=== PATIENT | female | born 1995 | race Caucasian/White ===

== ENCOUNTER 2018-05-25 16:51 | Emergency (ER) | payer MEDICAID ==
[~2018-05-25] VITALS: Ht 167.6 cm; Wt 101.3 kg
[2018-05-25 18:10] VITALS: BP 138/74
[2018-05-25 20:24] LABS: APPEARANCE,URINE CLEAR (CLEAR); BILIRUBIN,URINE NEGATIVE (NEGATIVE); BLOOD, URINE 3+ (NEGATIVE); COLOR,URINE YELLOW (YELLOW); LEUKOCYTE ESTERASE ,URINE NEGATIVE (NEGATIVE); NITRITE, URINE NEGATIVE (NEGATIVE); UGLUCOSE NEGATIVE (NEGATIVE)
[2018-05-25 20:47] LABS: RBC,URINE 0-5 (RARE) /HPF (0-5); WBC,URINE 0-5 (RARE) /HPF (0-5)
[2018-05-25 20:48] LABS: URINE AMORPHOUS URATE 3+ /HPF (None Seen)
[2018-05-25] MEDS ORDERED: NACL 0.9% 2,000 ML IV ONE (21:00)
[2018-05-25] MEDS ORDERED: KETOROLAC 30 MG/ML VIAL IVP ONE (21:00)
[2018-05-25 21:24] LABS: BASOPHILS % (AUTO) 0.3 % (0.0-2.0); EOSINOPHILS # (AUTO) 0.4 K/uL (0-0.4); EOSINOPHILS % (AUTO) 3.3 % (0.0-4.0); HEMOGLOBIN 13.4 g/dL (12.0-16.0); LYMPHOCYTES # (AUTO) 3.5 K/uL (2.5-16.5); LYMPHOCYTES % (AUTO) 27.7 % (20.5-51.1); MEAN CORPUSCULAR HEMOGLOBIN 27 pg (27-31); MEAN CORPUSCULAR HGB CONC 33 g/dL (33-37); MEAN CORPUSCULAR VOLUME 82.8 fL (80-94); MONOCYTES # (AUTO) 0.8 K/uL (0.8-1.0); MONOCYTES % (AUTO) 6.5 % (1.7-9.3); NEUTROPHILS # (AUTO) 7.8 K/uL (1.8-7.7); NEUTROPHILS % (AUTO) 62.2 % (42.2-75.2); PLATELET COUNT (AUTO) 266 K/uL (140-450); RED BLOOD CELL COUNT(AUTO) 4.95 MIL/uL (4.20-5.40); RED CELL DISTRIBUTION WIDTH 14.2 % (11.6-13.7); WHITE BLOOD COUNT (AUTO) 12.5 K/uL (4.8-10.8)
[2018-05-25 21:52] LABS: ANION GAP 11.7 (8-16); CARBON DIOXIDE 28.2 mmol/L (21-32); CREATININE 0.8 mg/dL (0.6-1.3); POTASSIUM 3.9 mmol/L (3.5-5.1); TOTAL BILIRUBIN 0.3 mg/dL (0.0-1.0)
[2018-05-26 00:13] VITALS: BP 111/60
== END 2018-05-26 00:15 | disposition home or self-care (01) ==
LOC: MED 16:51
DX: R10.2 Pelvic and perineal pain (principal); N93.9 Abnormal uterine and vaginal bleeding, unspecified; J45.909 Unspecified asthma, uncomplicated; Z88.6 Allergy status to analgesic agent; Z90.49 Acquired absence of other specified parts of digestive tract; Z98.890 Other specified postprocedural states
CPT/HCPCS: 36415; 76830; 80053; 81001; 81025; 83690; 85025; 87086; 93976; 96374; 99284; J1885; J7030; Q0092

== ENCOUNTER 2018-08-20 16:48 | Emergency (ER) | payer MEDICAID ==
[~2018-08-20] VITALS: Ht 165.1 cm; Wt 102.1 kg
[2018-08-20 17:09] VITALS: BP 139/70
--- NOTE | 2018-08-20 17:13 | NUR ---
PT PROVIDED URINE SAMPLE, AMB TO LOBBY. NO DISTRESS.
--- NOTE | 2018-08-20 17:35 | NUR ---
PT. AMBULATED TO ER BED 7
--- NOTE | 2018-08-20 17:45 | NUR ---
PT BIB SELF TO THE ED WITH THE CHIEF C/O RECTAL BLEEDING X1 DAY. PT REPORTS BRIGHT RED BLOOD IN STOOL X1 TODAY. HAD DIARRHEA X3 TODAY. REPORTS NAUSEA AT THIS TIME. DENIES VOMITING. DENIES ANY FEVER. ABDOMEN SOFT ROUND AND TENDER. ACTIVE BOWEL SOUND. DENIES ANY ABDOMINAL PAIN AT THIS TIME. VSS. ER MD AWARE.
--- NOTE | 2018-08-20 18:32 | NUR ---
PT BEING EVALUATED BY ER AT THIS TIME.
--- NOTE | 2018-08-20 19:10 | NUR ---
REPORT GIVEN TO DESPATCHING AND RECEIVING CLERK RN FOR CONTINUITY OF CARE.
[2018-08-20 19:21] VITALS: BP 116/52
--- NOTE | 2018-08-20 19:21 | NUR ---
Patient discharged with v/s stable. Written and verbal after care instructions given and explained. Patient alert, oriented and verbalized understanding of instructions. Ambulatory with steady gait. All questions addressed prior to discharge. ID band removed. Patient advised to follow up with PMD. Rx of ANUSOL RC given. Patient educated on indication of medication including possible reaction and side effects. Opportunity to ask questions provided and answered.
== END 2018-08-20 19:21 | disposition home or self-care (01) ==
LOC: MED 16:48
DX: K64.4 Residual hemorrhoidal skin tags (principal); J45.909 Unspecified asthma, uncomplicated; Z88.6 Allergy status to analgesic agent
CPT/HCPCS: 81002; 81025; 99283

== ENCOUNTER 2021-04-10 19:19 | Emergency (ER) | payer MEDICAID ==
[~2021-04-10] VITALS: Ht 165.1 cm; Wt 117.5 kg
[2021-04-10 19:58] VITALS: BP 120/69
--- NOTE | 2021-04-10 20:09 | NUR ---
PATIENT TO [facility] AMBUL[facility]ORY
[2021-04-10] MEDS ORDERED: AMOX500C25 PO (22:35)
--- NOTE | 2021-04-10 23:00 | NUR ---
PT SEEN AND EVALUATED BY ERMD. NO NURSING INTERVENTIONS PROVIDED.
--- NOTE | 2021-04-10 23:22 | NUR ---
Patient discharged with v/s stable. Written and verbal after care instructions given and explained. Patient alert, oriented and verbalized understanding of instructions. Ambulatory with steady gait. All questions addressed prior to discharge. ID band removed. Patient advised to follow up with PMD. Rx of AMOXICILLIN AND ZOFRAN given. Patient educated on indication of medication including possible reaction and side effects. Opportunity to ask questions provided and answered.
[2021-04-10] MEDS ORDERED: ONDA-188 SL (23:23)
== END 2021-04-10 23:22 | disposition home or self-care (01) ==
LOC: MED 19:19
DX: J32.0 Chronic maxillary sinusitis (principal); J32.1 Chronic frontal sinusitis; J45.909 Unspecified asthma, uncomplicated; Z88.5 Allergy status to narcotic agent; Z88.6 Allergy status to analgesic agent; Z79.899 Other long term (current) drug therapy
CPT/HCPCS: 99283